=== PATIENT | female | born 1980 | race Caucasian/White ===

== ENCOUNTER 2018-04-07 17:09 | Inpatient (IN) | payer OTHER ==
[2018-04-07] MEDS ORDERED: XYLOCAINE 2% INFILTRATI ONE (18:14)
[2018-04-07] MEDS ORDERED: BRETHINE IVP PRN (18:14)
[2018-04-07] MEDS ORDERED: STADOL IV PRN (18:14)
[2018-04-07] MEDS ORDERED: MINERAL OIL PO PRN (18:14)
[2018-04-07] MEDS ORDERED: ZOFRAN IV PRN (18:14)
[2018-04-07] MEDS ORDERED: NARCAN 0.4 MG/1 ML IV PRN (18:14)
[2018-04-07] MEDS ORDERED: CERVIDIL VG ONE (18:14)
[2018-04-07] MEDS ORDERED: BRETHINE SUB-Q PRN (18:14)
--- NOTE | 2018-04-07 18:32 | History and Physical Report ---
History of Present Illness Date of examination: 04/07/18 Date of admission: 04/07/18 17:32 Chief complaint: SIUP at 36 weeks and 5 days gestation with Gestational diabetes and uncontrolled glucose. History of present illness: Patient is a 37 year old , LMP 07/24/17, EDC 04/30/18 at 36 weeks and 5 days gestation who was sent from [facility] office for uncontrolled blood glucose. She is a patient of [facility] being co-managed with [facility] for gestational diabetes. She has been on glyburide which did not provide adequate glucose control. She was prescribed insulin which she refused to take. She has been on max dose of glyburide 10 mg BID and yet, her glucose has been uncontrolled. She went to [facility] for a routine visit today where her fasting glucose was 121 and sonogram showed EFW of 8lbs 11 oz, BPP was 8/8. On arrival to triage, she denies any contractions, fluid leakage or bleeding. She reports good movement. Past History Past Medical History: diabetes, other (obesity, advanced maternal age) Past Surgical History: no surgical history Family/Genetic History: none Social history: no significant social history - Obstetrical History Expected Date of Delivery: 04/30/18 Actual Gestation: 36 Week(s) 6 Day(s) : 4 Para: 3 Number of Living Children: 3 #1 Infant Gender: Female year: 1,999 Birthweight: 3.175 kg Method of Delivery: Vaginal Gestational age at delivery: 40 #2 Gender: Female year: 2,007 Method of Delivery: Vaginal Gestational age at delivery: 40 Complications: none #3 Infant Gender: Male year: 2,008 Method of Delivery: Vaginal Gestational age at delivery: 40 Complications: none Medications and Allergies Allergies Allergy/AdvReac Type Severity Reaction Status Date / Time No Known Allergies Allergy Verified 04/07/18 18:44 - Vital Signs Vital signs: Vital Signs Pulse BP 87 116/66 04/07/18 18:01 04/07/18 18:01 Temp Pulse Resp BP Pulse Ox 87 116/66 04/07/18 18:01 04/07/18 18:01 - Physical Exam Cardiovascular: Normal S1, Normal S2 Lungs: Positive: Clear to auscultation Vulva: both: normal Deep Tendon Reflex Grade: Normal +2 - Obstetrical FHR: category 1 Uterine Contraction Monitor Mode: External Cervical Dilatation: 0 Cervical Effacement Percentage: 0 station: -3 Uterine Contraction Pattern: Absent Results Result Diagrams: 04/07/18 18:00 All other labs normal. Assessment and Plan - Patient Problems (1) 36 weeks gestation of Current Visit: Yes Status: Acute Plan to address problem: Admit to labor floor for labor induction for uncontrolled glucose. Routine admitting labs. Continuous monitoring. (2) Gestational diabetes Current Visit: Yes Status: Acute (3) Uncontrolled blood glucose Current Visit: Yes Status: Acute Plan to address problem: Will start glucose monitoring. Will give insulin sliding scale during labor. keep NPO, give IV fluid RL. (4) Advanced maternal age (AMA) in Current Visit: Yes Status: Acute (5) GBS bacteriuria Current Visit: Yes Status: Acute Plan to address problem: Will give IV antibiotics in labor.
[2018-04-07] MEDS ORDERED: PITOCin/NS 30 UNIT/500ML 30 UNITS/500 ML BAG IV SCH (19:00)
[2018-04-07] MEDS: LACTATED RINGERS 1,000 ML IV SCH (19:01)
[2018-04-07 19:03] LABS: Hemoglobin 10.8 gm/dl (10.1-14.3); Mean Corpuscular HGB Conc 34 % (30-34); Mean Corpuscular Hemoglobin 26 pg (28-32); Mean Corpuscular Volume 78 fl (79-97); Platelet Count 195 K/mm3 (140-440)
[2018-04-08] MEDS: LACTATED RINGERS 1,000 ML IV SCH ×3 (00:02→17:40)
[2018-04-08] MEDS: HumuLIN R SUB-Q SCH ×2 (00:03→22:36)
[2018-04-08] MEDS ORDERED: CYTOTEC VG SCH (09:00)
--- NOTE | 2018-04-08 09:40 | Progress Note ---
Assessment and Plan A: IUP @ 36 weeks Category I tracing Uncontrolled GDM A2 AMA GBS Unknown P: Cervidil Removed Cytotec 25mcg placed vaginally GBS prophylaxis Continue GDM MD management (sliding scale) Subjective - Subjective Date of service: 04/08/18 Patient reports: other (Resting well; has not started to feel labor pains) Objective - Vital Signs Vital Signs: Vital Signs - 12hr 04/07/18 04/07/18 04/07/18 22:15 22:17 22:22 Temperature Pulse Rate 85 81 83 Respiratory Rate Blood Pressure 115/63 Blood Pressure [Left] O2 Sat by Pulse 98 98 Oximetry 04/07/18 04/07/18 04/07/18 22:27 22:32 22:37 Temperature Pulse Rate 84 83 80 Respiratory Rate Blood Pressure Blood Pressure [Left] O2 Sat by Pulse 97 97 97 Oximetry 04/07/18 04/07/18 04/07/18 22:42 22:47 22:52 Temperature Pulse Rate 77 77 77 Respiratory Rate Blood Pressure Blood Pressure [Left] O2 Sat by Pulse 97 99 99 Oximetry 04/07/18 04/07/18 04/07/18 22:57 23:02 23:07 Temperature Pulse Rate 79 78 77 Respiratory Rate Blood Pressure Blood Pressure [Left] O2 Sat by Pulse 99 100 100 Oximetry 04/07/18 04/07/18 04/07/18 23:12 23:16 23:17 Temperature Pulse Rate 78 82 86 Respiratory Rate Blood Pressure 114/67 Blood Pressure [Left] O2 Sat by Pulse 100 96 Oximetry 04/07/18 04/07/18 04/07/18 23:22 23:27 23:32 Temperature Pulse Rate 76 83 75 Respiratory Rate Blood Pressure Blood Pressure [Left] O2 Sat by Pulse 97 97 96 Oximetry 04/07/18 04/07/18 04/07/18 23:35 23:37 23:42 Temperature Pulse Rate 90 81 75 Respiratory Rate Blood Pressure Blood Pressure [Left] O2 Sat by Pulse 94 95 95 Oximetry 04/07/18 04/07/18 04/07/18 23:47 23:52 23:57 Temperature Pulse Rate 85 84 83 Respiratory Rate Blood Pressure Blood Pressure [Left] O2 Sat by Pulse 97 97 97 Oximetry 04/08/18 04/08/18 04/08/18 00:02 00:07 00:12 Temperature Pulse Rate 83 83 88 Respiratory Rate Blood Pressure Blood Pressure [Left] O2 Sat by Pulse 97 97 97 Oximetry 04/08/18 04/08/18 04/08/18 00:16 00:17 00:22 Temperature Pulse Rate 80 87 85 Respiratory Rate Blood Pressure 105/56 Blood Pressure [Left] O2 Sat by Pulse 98 97 Oximetry 04/08/18 04/08/18 04/08/18 00:27 00:32 00:43 Temperature Pulse Rate 83 82 94 H Respiratory Rate Blood Pressure Blood Pressure [Left] O2 Sat by Pulse 96 95 83 L Oximetry 04/08/18 04/08/18 04/08/18 00:44 00:49 00:54 Temperature Pulse Rate 84 82 87 Respiratory Rate Blood Pressure Blood Pressure [Left] O2 Sat by Pulse 99 98 96 Oximetry 04/08/18 04/08/18 04/08/18 00:59 01:04 01:09 Temperature Pulse Rate 88 88 81 Respiratory Rate Blood Pressure Blood Pressure [Left] O2 Sat by Pulse 96 98 98 Oximetry 04/08/18 04/08/18 04/08/18 01:14 01:17 01:19 Temperature Pulse Rate 85 73 82 Respiratory Rate Blood Pressure 111/44 Blood Pressure [Left] O2 Sat by Pulse 98 98 Oximetry 04/08/18 04/08/18 04/08/18 01:24 01:29 01:34 Temperature Pulse Rate 79 89 79 Respiratory Rate Blood Pressure Blood Pressure [Left] O2 Sat by Pulse 98 97 97 Oximetry 04/08/18 04/08/18 04/08/18 01:39 01:44 01:49 Temperature Pulse Rate 102 H 88 94 H Respiratory Rate Blood Pressure Blood Pressure [Left] O2 Sat by Pulse 99 94 96 Oximetry 04/08/18 04/08/18 04/08/18 01:54 01:59 02:04 Temperature Pulse Rate 85 90 87 Respiratory Rate Blood Pressure Blood Pressure [Left] O2 Sat by Pulse 98 97 97 Oximetry 04/08/18 04/08/18 04/08/18 02:09 02:14 02:17 Temperature Pulse Rate 93 H 94 H 86 Respiratory Rate Blood Pressure 101/57 Blood Pressure [Left] O2 Sat by Pulse 96 96 Oximetry 04/08/18 04/08/18 04/08/18 02:19 02:24 02:29 Temperature Pulse Rate 85 87 92 H Respiratory Rate Blood Pressure Blood Pressure [Left] O2 Sat by Pulse 96 96 97 Oximetry 04/08/18 04/08/18 04/08/18 02:34 02:39 02:44 Temperature Pulse Rate 84 83 91 H Respiratory Rate Blood Pressure Blood Pressure [Left] O2 Sat by Pulse 97 97 95 Oximetry 04/08/18 04/08/18 04/08/18 02:49 02:54 02:59 Temperature Pulse Rate 81 77 82 Respiratory Rate Blood Pressure Blood Pressure [Left] O2 Sat by Pulse 96 95 96 Oximetry 04/08/18 04/08/18 04/08/18 03:18 03:23 03:28 Temperature Pulse Rate 79 80 77 Respiratory Rate Blood Pressure 114/58 Blood Pressure [Left] O2 Sat by Pulse 97 96 97 Oximetry 04/08/18 04/08/18 04/08/18 03:33 03:38 03:43 Temperature Pulse Rate 78 79 85 Respiratory Rate Blood Pressure Blood Pressure [Left] O2 Sat by Pulse 97 97 96 Oximetry 04/08/18 04/08/18 04/08/18 03:48 03:53 03:58 Temperature Pulse Rate 80 83 79 Respiratory Rate Blood Pressure Blood Pressure [Left] O2 Sat by Pulse 97 97 96 Oximetry 04/08/18 04/08/18 04/08/18 04:03 04:08 04:13 Temperature Pulse Rate 86 92 H 80 Respiratory Rate Blood Pressure Blood Pressure [Left] O2 Sat by Pulse 96 98 98 Oximetry 04/08/18 04/08/18 04/08/18 04:16 04:18 04:23 Temperature Pulse Rate 76 80 77 Respiratory Rate Blood Pressure 122/64 Blood Pressure [Left] O2 Sat by Pulse 98 98 Oximetry 04/08/18 04/08/18 04/08/18 04:28 04:33 04:38 Temperature Pulse Rate 86 80 81 Respiratory Rate Blood Pressure Blood Pressure [Left] O2 Sat by Pulse 98 99 98 Oximetry 04/08/18 04/08/18 04/08/18 04:43 04:48 04:53 Temperature Pulse Rate 88 84 80 Respiratory Rate Blood Pressure Blood Pressure [Left] O2 Sat by Pulse 99 99 99 Oximetry 04/08/18 04/08/18 04/08/18 04:58 05:03 05:08 Temperature Pulse Rate 76 82 79 Respiratory Rate Blood Pressure Blood Pressure [Left] O2 Sat by Pulse 99 100 100 Oximetry 04/08/18 04/08/18 04/08/18 05:13 05:18 05:23 Temperature Pulse Rate 78 80 82 Respiratory Rate Blood Pressure Blood Pressure [Left] O2 Sat by Pulse 100 100 99 Oximetry 04/08/18 04/08/18 04/08/18 05:28 05:33 05:38 Temperature Pulse Rate 75 86 81 Respiratory Rate Blood Pressure Blood Pressure [Left] O2 Sat by Pulse 100 100 99 Oximetry 04/08/18 04/08/18 04/08/18 05:43 05:48 05:53 Temperature Pulse Rate 75 72 73 Respiratory Rate Blood Pressure Blood Pressure [Left] O2 Sat by Pulse 98 97 96 Oximetry 04/08/18 04/08/18 04/08/18 05:58 06:03 08:52 Temperature 98.2 F Pulse Rate 77 82 85 Respiratory 18 Rate Blood Pressure Blood Pressure 104/56 [Left] O2 Sat by Pulse 96 97 97 Oximetry 04/08/18 08:53 Temperature Pulse Rate 76 Respiratory Rate Blood Pressure 104/56 Blood Pressure [Left] O2 Sat by Pulse 98 Oximetry - Exam Breasts: normal Cardiovascular: Regular rate Lungs: Clear to auscultation, Normal air movement Abdomen: Present: normal appearance, soft Uterus: Present: normal, firm, fundal height above umbilicus FHR: category 1 Uterine Contraction Monitor Mode: External Cervical Dilatation: 1 Cervical Effacement Percentage: 20 station: -3 Uterine Contraction Pattern: Irregular Uterine Tone Measurement Phase: Resting Uterine Contraction Intensity: Mild - Labs Labs: Abnormal Labs 04/07/18 04/08/18 04/08/18 18:00 00:00 01:42 MCV 78 L MCH 26 L RDW 16.0 H POC Glucose 51 L 108 H Laboratory Results - last 24 hr 04/07/18 04/07/18 04/08/18 18:00 18:00 00:00 WBC 4.5 RBC 4.10 Hgb 10.8 Hct 32.0 MCV 78 L MCH 26 L MCHC 34 RDW 16.0 H Plt Count 195 POC Glucose 51 L Blood Type O POSITIVE Antibody Screen Negative 04/08/18 01:42 WBC RBC Hgb Hct MCV MCH MCHC RDW Plt Count POC Glucose 108 H Blood Type Antibody Screen
[2018-04-08] MEDS: PFIZERPEN 2.5 MIL.UNITS in NACL 0.9% 50 ML IV SCH ×5 (12:19→22:25)
--- NOTE | 2018-04-08 14:22 | Progress Note ---
Assessment and Plan A: IUP @ 36 weeks Category I tracing Uncontrolled GDM A2 AMA GBS Unknown P: Cook's Cervical Ripening Balloon placed Start Low Dose Pitocin Augmentation Continue GBS Prophylaxis IV Pain Control Continue GDM MD management (sliding scale) Subjective - Subjective Date of service: 04/08/18 Patient reports: movement normal, contractions Objective - Vital Signs Vital Signs: Vital Signs - 12hr 04/08/18 04/08/18 04/08/18 02:19 02:24 02:29 Temperature Pulse Rate 85 87 92 H Respiratory Rate Blood Pressure Blood Pressure [Left] O2 Sat by Pulse 96 96 97 Oximetry 04/08/18 04/08/18 04/08/18 02:34 02:39 02:44 Temperature Pulse Rate 84 83 91 H Respiratory Rate Blood Pressure Blood Pressure [Left] O2 Sat by Pulse 97 97 95 Oximetry 04/08/18 04/08/18 04/08/18 02:49 02:54 02:59 Temperature Pulse Rate 81 77 82 Respiratory Rate Blood Pressure Blood Pressure [Left] O2 Sat by Pulse 96 95 96 Oximetry 04/08/18 04/08/18 04/08/18 03:18 03:23 03:28 Temperature Pulse Rate 79 80 77 Respiratory Rate Blood Pressure 114/58 Blood Pressure [Left] O2 Sat by Pulse 97 96 97 Oximetry 04/08/18 04/08/18 04/08/18 03:33 03:38 03:43 Temperature Pulse Rate 78 79 85 Respiratory Rate Blood Pressure Blood Pressure [Left] O2 Sat by Pulse 97 97 96 Oximetry 04/08/18 04/08/18 04/08/18 03:48 03:53 03:58 Temperature Pulse Rate 80 83 79 Respiratory Rate Blood Pressure Blood Pressure [Left] O2 Sat by Pulse 97 97 96 Oximetry 04/08/18 04/08/18 04/08/18 04:03 04:08 04:13 Temperature Pulse Rate 86 92 H 80 Respiratory Rate Blood Pressure Blood Pressure [Left] O2 Sat by Pulse 96 98 98 Oximetry 04/08/18 04/08/18 04/08/18 04:16 04:18 04:23 Temperature Pulse Rate 76 80 77 Respiratory Rate Blood Pressure 122/64 Blood Pressure [Left] O2 Sat by Pulse 98 98 Oximetry 04/08/18 04/08/18 04/08/18 04:28 04:33 04:38 Temperature Pulse Rate 86 80 81 Respiratory Rate Blood Pressure Blood Pressure [Left] O2 Sat by Pulse 98 99 98 Oximetry 04/08/18 04/08/18 04/08/18 04:43 04:48 04:53 Temperature Pulse Rate 88 84 80 Respiratory Rate Blood Pressure Blood Pressure [Left] O2 Sat by Pulse 99 99 99 Oximetry 04/08/18 04/08/18 04/08/18 04:58 05:03 05:08 Temperature Pulse Rate 76 82 79 Respiratory Rate Blood Pressure Blood Pressure [Left] O2 Sat by Pulse 99 100 100 Oximetry 04/08/18 04/08/18 04/08/18 05:13 05:18 05:23 Temperature Pulse Rate 78 80 82 Respiratory Rate Blood Pressure Blood Pressure [Left] O2 Sat by Pulse 100 100 99 Oximetry 04/08/18 04/08/18 04/08/18 05:28 05:33 05:38 Temperature Pulse Rate 75 86 81 Respiratory Rate Blood Pressure Blood Pressure [Left] O2 Sat by Pulse 100 100 99 Oximetry 04/08/18 04/08/18 04/08/18 05:43 05:48 05:53 Temperature Pulse Rate 75 72 73 Respiratory Rate Blood Pressure Blood Pressure [Left] O2 Sat by Pulse 98 97 96 Oximetry 04/08/18 04/08/18 04/08/18 05:58 06:03 08:52 Temperature 98.2 F Pulse Rate 77 82 85 Respiratory 18 Rate Blood Pressure Blood Pressure 104/56 [Left] O2 Sat by Pulse 96 97 97 Oximetry 04/08/18 04/08/18 04/08/18 08:53 12:29 12:30 Temperature 99.3 F Pulse Rate 76 88 80 Respiratory 18 Rate Blood Pressure 104/56 116/72 Blood Pressure 116/72 [Left] O2 Sat by Pulse 98 97 97 Oximetry - Exam Breasts: normal Cardiovascular: Regular rate Lungs: Clear to auscultation, Normal air movement Abdomen: Present: normal appearance, soft Uterus: Present: normal, firm FHR: category 1 Uterine Contraction Monitor Mode: External Cervical Dilatation: 1 (intact) Cervical Effacement Percentage: 30 station: -3 Uterine Contraction Pattern: Irregular Uterine Tone Measurement Phase: Resting Uterine Contraction Intensity: Moderate Extremities: normal - Labs Labs: Abnormal Labs 04/07/18 04/08/18 04/08/18 18:00 00:00 01:42 MCV 78 L MCH 26 L RDW 16.0 H POC Glucose 51 L 108 H Laboratory Results - last 24 hr 04/07/18 04/07/18 04/08/18 18:00 18:00 00:00 WBC 4.5 RBC 4.10 Hgb 10.8 Hct 32.0 MCV 78 L MCH 26 L MCHC 34 RDW 16.0 H Plt Count 195 POC Glucose 51 L RPR Blood Type O POSITIVE Antibody Screen Negative 04/08/18 04/08/18 04/08/18 01:42 09:30 11:31 WBC RBC Hgb Hct MCV MCH MCHC RDW Plt Count POC Glucose 108 H 91 RPR Nonreactive Blood Type Antibody Screen
[2018-04-08] MEDS: STADOL IV PRN ×2 (14:35→20:50)
[2018-04-08] MEDS: PITOCin/NS 30 UNIT/500ML 30 UNITS/500 ML BAG IV SCH ×2 (14:53→15:53)
--- NOTE | 2018-04-08 18:53 | Progress Note ---
Assessment and Plan A: IUP @ 36 weeks Category I tracing Uncontrolled GDM A2 AMA GBS Unknown P: Cook's Cervical Ripening Balloon fell out Continue Pitocin Augmentation Continue GBS Prophylaxis IV Pain Control Continue GDM MD management (sliding scale) Subjective - Subjective Date of service: 04/08/18 Patient reports: movement normal, contractions Objective - Vital Signs Vital Signs: Vital Signs - 12hr 04/08/18 04/08/18 04/08/18 08:52 08:53 12:29 Temperature 98.2 F 99.3 F Pulse Rate 85 76 88 Respiratory 18 18 Rate Blood Pressure 104/56 116/72 Blood Pressure 104/56 116/72 [Left] O2 Sat by Pulse 97 98 97 Oximetry 04/08/18 04/08/18 04/08/18 12:30 14:54 15:28 Temperature Pulse Rate 80 77 78 Respiratory Rate Blood Pressure 113/66 112/60 Blood Pressure [Left] O2 Sat by Pulse 97 Oximetry 04/08/18 04/08/18 04/08/18 15:55 15:56 16:27 Temperature 98.1 F Pulse Rate 78 78 71 Respiratory 18 Rate Blood Pressure 103/60 111/60 Blood Pressure 103/60 [Left] O2 Sat by Pulse Oximetry 04/08/18 04/08/18 04/08/18 16:57 17:26 17:56 Temperature Pulse Rate 70 71 71 Respiratory Rate Blood Pressure 123/61 127/73 120/68 Blood Pressure [Left] O2 Sat by Pulse Oximetry 04/08/18 18:27 Temperature Pulse Rate 77 Respiratory Rate Blood Pressure 131/82 Blood Pressure [Left] O2 Sat by Pulse Oximetry - Exam Breasts: normal Abdomen: Present: normal appearance, soft Uterus: Present: normal, firm, fundal height above umbilicus FHR: category 1 Uterine Contraction Monitor Mode: External Cervical Dilatation: 5 (Vtx) Cervical Effacement Percentage: 60 station: -3 Uterine Contraction Pattern: Regular Uterine Tone Measurement Phase: Resting Uterine Contraction Intensity: Moderate - Labs Labs: Abnormal Labs 04/07/18 04/08/18 04/08/18 18:00 00:00 01:42 MCV 78 L MCH 26 L RDW 16.0 H POC Glucose 51 L 108 H Laboratory Results - last 24 hr 04/07/18 04/07/18 04/08/18 18:00 18:00 00:00 WBC 4.5 RBC 4.10 Hgb 10.8 Hct 32.0 MCV 78 L MCH 26 L MCHC 34 RDW 16.0 H Plt Count 195 POC Glucose 51 L RPR Blood Type O POSITIVE Antibody Screen Negative 04/08/18 04/08/18 04/08/18 01:42 09:30 11:31 WBC RBC Hgb Hct MCV MCH MCHC RDW Plt Count POC Glucose 108 H 91 RPR Nonreactive Blood Type Antibody Screen 04/08/18 14:40 WBC RBC Hgb Hct MCV MCH MCHC RDW Plt Count POC Glucose 93 RPR Blood Type Antibody Screen
[2018-04-08] MEDS ORDERED: PITOCin/NS 20 UNIT/1000ML DRIP 20 UNITS/1,000 ML BAG IV SCH (20:00)
--- NOTE | 2018-04-08 20:31 | Event Note ---
Date: 04/08/18 O:Denis bulb fell out, last exam was /-3/ intact, Cat I tracing A; Uncontrolled Diabetes Induction of labor @ 36.5 wks P; Pitocin discontinued Will restart in am
[2018-04-09] MEDS: PFIZERPEN 2.5 MIL.UNITS in NACL 0.9% 50 ML IV SCH ×3 (02:53→10:54)
[2018-04-09] MEDS: LACTATED RINGERS 1,000 ML IV SCH (03:34)
[2018-04-09] MEDS: PITOCin/NS 30 UNIT/500ML 30 UNITS/500 ML BAG IV SCH (06:09)
[2018-04-09] MEDS: HumuLIN R SUB-Q SCH ×3 (06:29→11:59)
[2018-04-09] MEDS: STADOL IV PRN (07:07)
[2018-04-09] MEDS ORDERED: D50W (25GM) Syringe IV PRN (08:30)
--- NOTE | 2018-04-09 08:33 | Progress Note ---
Assessment and Plan - Patient Problems (1) 37 weeks gestation of Current Visit: Yes Status: Acute (2) Encounter for induction of labor Current Visit: Yes Status: Acute Plan to address problem: Continue routine labor orders AROM @ 08:21, clear fluid, moderate amount IUPC/FSE inserted Anticipate vaginal delivery (3) Gestational diabetes Current Visit: Yes Status: Acute Qualifiers: Gestational diabetes mellitus control: insulin-controlled Trimester: third trimester Qualified Code(s): O24.414 - Gestational diabetes mellitus in , insulin controlled Plan to address problem: Blood glucose 51-111 Continue accuchecks and sliding scale insulin, per MD management (4) GBS bacteriuria Current Visit: Yes Status: Acute Plan to address problem: Continue antibiotics therapy (5) Advanced maternal age (AMA) in Current Visit: Yes Status: Acute Subjective - Subjective Date of service: 04/09/18 Principal diagnosis: IUP @ 37 weeks 0 day; IOL secondary to Uncontrolled GDM Patient reports: movement normal, contractions, no loss of fluid, no vaginal bleeding Objective - Vital Signs Vital Signs: Vital Signs - 12hr 04/08/18 04/08/18 04/08/18 20:44 20:50 21:20 Temperature Pulse Rate 81 Respiratory 18 18 Rate Blood Pressure 116/65 Blood Pressure [Left] O2 Sat by Pulse Oximetry 04/08/18 04/08/18 04/08/18 21:43 22:45 23:45 Temperature Pulse Rate 97 H 80 82 Respiratory Rate Blood Pressure 127/75 118/61 125/65 Blood Pressure [Left] O2 Sat by Pulse Oximetry 04/08/18 04/08/18 04/09/18 23:53 23:55 00:44 Temperature 99.7 F H Pulse Rate 85 85 98 H Respiratory 20 Rate Blood Pressure 124/63 119/55 Blood Pressure 124/63 [Left] O2 Sat by Pulse Oximetry 04/09/18 04/09/18 04/09/18 01:44 02:43 03:32 Temperature 99.6 F Pulse Rate 98 H 88 98 H Respiratory 18 Rate Blood Pressure 117/62 109/61 Blood Pressure 111/66 [Left] O2 Sat by Pulse Oximetry 04/09/18 04/09/18 04/09/18 03:34 03:43 04:45 Temperature Pulse Rate 98 H 88 81 Respiratory Rate Blood Pressure 111/66 116/63 115/76 Blood Pressure [Left] O2 Sat by Pulse Oximetry 04/09/18 04/09/18 04/09/18 05:43 06:43 07:00 Temperature 98.8 F Pulse Rate 95 H 90 Respiratory Rate Blood Pressure 117/60 110/61 Blood Pressure [Left] O2 Sat by Pulse Oximetry 04/09/18 04/09/18 04/09/18 07:10 07:45 08:32 Temperature Pulse Rate 100 H 90 81 Respiratory Rate Blood Pressure 111/66 108/60 Blood Pressure [Left] O2 Sat by Pulse 99 Oximetry - Exam Vulva: both: normal FHR: category 2 FHR comments: baseline 130, moderate variability, 15x15 accels, variable decels Uterine Contraction Monitor Mode: External Cervical Dilatation: 7 Cervical Effacement Percentage: 80 station: -1 Uterine Contraction Frequency (min): 5-7 Uterine Contraction Pattern: Regular Extremities: normal - Labs Labs: Abnormal Labs 04/07/18 04/08/18 04/08/18 18:00 00:00 01:42 MCV 78 L MCH 26 L RDW 16.0 H POC Glucose 51 L 108 H 04/09/18 06:19 MCV MCH RDW POC Glucose 111 H Laboratory Results - last 24 hr 04/08/18 04/08/18 04/08/18 09:30 11:31 14:40 POC Glucose 91 93 RPR Nonreactive 04/08/18 04/08/18 04/09/18 19:03 22:36 02:17 POC Glucose 71 76 87 RPR 04/09/18 06:19 POC Glucose 111 H RPR
[2018-04-09] MEDS ORDERED: NARCAN 2 MG/2 ML IV PRN (09:33)
[2018-04-09] MEDS ORDERED: fentaNYL-BUPIV 2 MCG/ML-0.125% 200 MCG/100 ML BAG EPIDURAL SCH (10:00)
[2018-04-09] MEDS ORDERED: NACL 0.9% 1000 ML 1,000 ML ONE ×3 (11:47→15:21)
--- NOTE | 2018-04-09 12:56 | Event Note ---
Date: 04/09/18 Patient with deep decels. On exam, she is 7-8/0 station. Plan is to proceed with primary LTCS and BTL. She has been consented.
[2018-04-09] MEDS ORDERED: BICITRA ONE (13:01)
[2018-04-09] MEDS ORDERED: BICITRA PO SCH (13:01)
[2018-04-09] MEDS ORDERED: REGLAN IV ONE (13:01)
[2018-04-09] MEDS ORDERED: PEPCID IV ONE ×2 (13:01→13:02)
[2018-04-09] MEDS ORDERED: REGLAN ONE (13:01)
[2018-04-09] MEDS ORDERED: ANCEF/STERILE WATER 2 GM/20 ML 2 GM/20 ML SYRINGE IV ONE (13:02)
[2018-04-09] MEDS ORDERED: XYLOCAINE MPF 2% ONE (13:39)
[2018-04-09] MEDS ORDERED: NEO SYNEPHRINE/NS Syringe(OR USE) IV ONE ×3 (13:39→15:00)
[2018-04-09 13:44] LABS: Basophils % (Auto) 0.3 % (0.0-1.8); Eosinophils % (Auto) 0.2 % (0.0-4.3); Hematocrit 33.3 % (30.3-42.9); Hemoglobin 11.1 gm/dl (10.1-14.3); Lymphocytes # (Auto) 1.5 K/mm3 (1.2-5.4); Lymphocytes % (Auto) 14.1 % (13.4-35.0); Mean Corpuscular HGB Conc 33 % (30-34); Mean Corpuscular Hemoglobin 26 pg (28-32); Mean Corpuscular Volume 79 fl (79-97); Monocytes # (Auto) 0.5 K/mm3 (0.0-0.8); Monocytes % (Auto) 4.8 % (0.0-7.3); Platelet Count 195 K/mm3 (140-440); Red Blood Count 4.21 M/mm3 (3.65-5.03); Red Cell Distribution Width 16.4 % (13.2-15.2)
[2018-04-09] MEDS ORDERED: WATER FOR IRRIG STERILE IR ONE (13:51)
[2018-04-09] MEDS ORDERED: NACL 0.9% IR ONE (13:51)
[2018-04-09] MEDS ORDERED: PITOCin/NS 20 UNIT/1000ML DRIP 20 UNITS/1,000 ML BAG IV SCH ×2 (14:00→16:00)
[2018-04-09] MEDS ORDERED: ANCEF/STERILE WATER 2 GM/20 ML 2 GM/20 ML SYRINGE IV NR (14:00)
[2018-04-09] MEDS ORDERED: LACTATED RINGERS 1,000 ML IV SCH (14:00)
[2018-04-09] MEDS ORDERED: ASTRAMORPH PF 10MG/10ML ONE (14:32)
[2018-04-09] MEDS ORDERED: NACL 0.9% 500 ML 500 ML IV SCH (14:47)
--- NOTE | 2018-04-09 15:30 | Operative Report ---
Operative Report Operative Report: DATE: 04/09/2018 PREOPERATIVE DIAGNOSIS: 37-year-old at 37 weeks, category 2 tracing, Arrest of descent and arrest of dilation, Desires permanent sterilization POSTOP DIAGNOSIS: As above plus severely impacted fetus NAME OF PROCEDURE: Primary low transverse section, Bilateral tubal ligation by Cassandra SURGEON: GAUTAM BECKHAM MD [employer]: Elaina ANESTHESIA: Epidural COMPLICATION: Left cervical laceration EBL: 1600 mL PATHOLOGY SPECIMEN: Tubal specimens URINE OUTPUT: 100 mL bloody FINDINGS:Male in cephalic presentation, severely impacted fetus, time of 13:58, weight 7 lbs. 9 oz. or 3426 g, Apgars 8 and 8, normal uterus tubes and ovaries bilaterally DESCRIPTION OF PROCEDURE: After informed consent, patient was taken to the operating room where she was prepped and draped in a sterile fashion. Pfannestial incision was performed 2 cm above the pubic symphysis. This was then carried down to the underlying rectus fascia which was scored in the midline. The fascial incision was extended laterally with the use of Nichole scissors, anterior leaf was then grasped with Radha's elevated dissected sharply and bluntly off the underlying rectus. In a similar fashion the inferior leaf was grasped elevated dissected sharply and bluntly off the underlying rectus. The rectus was in the midline and the peritoneal cavity was entered without difficulty. After good visualization of the bladder the peritoneal layer was extended up and down; bladder blade was placed in the patient's pelvic cavity, bladder flap was created without difficulty. A hysterotomy incision was then performed with clear amniotic fluid noted. in cephalic presentation and deeply impacted was delivered with some difficulty after dislodging the impaction; cord was clamped cut and was handed over to waiting NICU staff. The placenta was then delivered intact, the uterus was then exteriorized cleared of all clots and debris. Her hysterotomy incision was was inspected and then the cervical laceration was repaired in a running fashion with 3-0 [address]1. The rest of the hysterotomy was then closed in a running locked fashion with 0 Vicryl on a CTX; using the same suture were able to imbricate the initial layer. Our attention was then turned to the tubes which were each grasped serially with Rand's elevated and using Cassandra technique, a sample of each tube was removed and sent to pathology. The uterus was then returned to the patient's pelvic cavity; the peritoneal edges were grasped with hemostats and Alem's; irrigation was used to clear the gutters of all clots and debris. Tisseel hemostatic agent and Surgicel were applied copiously over the hysterotomy incision. The bladder flap was then closed in a running fashion with 3-0 Vicryl. The peritoneal layer was closed in a running fashion with 3-0 Vicryl; the rectus was reapproximated with a single [id number] stitch. The fascia was then closed in a running fashion with 0 Vicryl; the subcutaneous layer was reapproximated with a single [id number] stitch. The skin was then closed in a subcuticular manner with 4-0 Monocryl. She tolerated the procedure well lap and instrument counts were correct 2, she did receive 2 grams of Ancef prior to the procedure. She is transferred to PACU in stable condition. She will receive 1 unit of packed red blood cell in PACU.
[2018-04-09] MEDS ORDERED: LANSINOH TP PRN (15:55)
[2018-04-09] MEDS ORDERED: NARCAN 0.4 MG/1 ML IV PRN (15:55)
[2018-04-09] MEDS ORDERED: PHENERGAN PR PRN (15:55)
[2018-04-09] MEDS ORDERED: ANUCORT-HC PR PRN (15:55)
[2018-04-09] MEDS ORDERED: TUCKS PAD TP PRN (15:55)
[2018-04-09] MEDS ORDERED: TYLENOL PO PRN (15:55)
[2018-04-09] MEDS ORDERED: D5LR 1,000 ML IV SCH (16:00)
[2018-04-09] MEDS ORDERED: SODIUM CHLORIDE FLUSH SYRINGE 10 ML IV NR (16:00)
[2018-04-10] MEDS: TORADOL IV PRN ×2 (00:49→08:38)
[2018-04-10 03:22] LABS: Hematocrit 28.2 % (30.3-42.9); Hemoglobin 9.3 gm/dl (10.1-14.3)
[2018-04-10 07:02] LABS: Blood Urea Nitrogen 4 mg/dL (7-17)
[2018-04-10] MEDS: MYLICON PO PRN (08:38)
--- NOTE | 2018-04-10 09:29 | Progress Note ---
Assessment and Plan A: /postop day 1 S/P primary low transverse section with BTL. Anemia. P: Encouraged patient to ambulate. Will advance diet as tolerated after patient is passing gas. Iron supplementation. Subjective - Subjective Date of service: 04/10/18 Principal diagnosis: /postop day 1 S/P primary LTCS w BTL Interval history: /postop day 1 S/P primary low transverse section with BTL. Patient is doing well. She has been up to ambulate in her room today; has not yet ambulated in the hallway. She is voiding without difficulty. Not passing gas yet. Tolerating a liquid diet without nausea or vomiting. Reports a small amount of lochia. Bottlefeeding. Patient denies headache, chest pain, cough, shortness of breath, abdominal pain, leg pain, or heavy bleeding. Patient reports: voiding normally, pain well controlled, ambulating normally, no flatus, no bowel movement : doing well Objective - Vital Signs Latest vital signs: Vital Signs Temp Pulse Resp BP BP Pulse Ox 04/10/18 04:32 99.1 F 99 H 20 105/66 96 04/10/18 00:49 20 04/10/18 00:25 99.8 F H 98 H 16 116/53 99 04/09/18 21:15 99.1 F 93 H 18 118/74 97 04/09/18 16:20 98.5 F 89 20 132/76 94 04/09/18 16:05 84 16 129/72 94 04/09/18 15:55 98.5 F 98 H 17 130/70 98 04/09/18 15:50 92 H 18 133/80 96 04/09/18 15:35 98.6 F 91 H 16 124/65 98 04/09/18 15:30 98 H 17 116/65 98 04/09/18 15:25 98.8 F 98 H 17 115/66 99 04/09/18 15:20 98.8 F 101 H 13 116/57 99 04/09/18 12:47 75 104/56 04/09/18 12:31 78 131/71 04/09/18 12:18 77 130/75 04/09/18 12:01 89 122/72 04/09/18 12:00 99.2 F 04/09/18 11:47 72 139/85 10/19/18 11:39 74 100 18 11:34 74 100 18 11:32 76 131/72 18 11:29 76 100 18 11:24 82 100 18 11:19 76 100 18 11:16 73 122/68 04/09/18 11:14 86 100 18 11:09 75 100 18 11:04 80 100 18 11:01 75 122/68 18 10:59 81 100 18 10:54 74 99 18 10:49 83 100 18 10:46 83 136/73 04/09/18 10:44 79 100 18 10:39 93 H 100 18 10:34 88 100 18 10:33 89 130/94 18 10:29 81 99 04/09/18 10:24 84 100 04/09/18 10:19 80 99 04/09/18 10:17 80 129/68 18 10:14 88 99 04/09/18 10:09 84 99 04/09/18 10:04 82 99 04/09/18 10:01 83 105/57 04/09/18 10:00 99.2 F 04/09/18 09:59 83 100 18 09:54 95 H 100 04/09/18 09:49 84 100 04/09/18 09:48 87 91 04/09/18 09:45 85 115/65 04/09/18 09:44 81 99 18 09:42 82 111/59 18 09:39 78 108/55 18 09:38 83 99 04/09/18 09:36 82 115/57 18 09:34 82 99 04/09/18 09:33 82 110/58 18 09:30 75 107/56 18 09:29 85 98 18 09:27 81 110/59 Intake and Output 04/09/18 04/10/18 04/10/18 23:59 07:59 15:59 Intake Total 1520 360 Output Total 900 450 Balance 620 -90 Intake: IV 1400 Intake, Free Water 120 360 Output: Urine 900 450 Indwelling Catheter 800 450 Other: Total, Output Amount 800 450 Estimated Blood Loss 1,600 - Exam Cardiovascular: Present: Regular rate, Normal S1, Normal S2 Lungs: Present: Clear to auscultation Abdomen: Present: normal appearance, soft, normal bowel sounds. Absent: distention, tenderness, guarding, rigidity Uterus: Present: normal, firm, fundal height below umbilicus. Absent: bogginess , tenderness Extremities: Present: normal. Absent: tenderness, edema Incision: Present: erythematous, dry, intact, dressed - Labs Labs: Abnormal lab results 04/09/18 04/09/18 04/09/18 Range/Units 13:11 13:11 17:37 Hgb (10.1-14.3) gm/dl Hct (30.3-42.9) % MCH 26 L (28-32) pg RDW 16.4 H (13.2-15.2) % Seg Neutrophils % 80.6 H (40.0-70.0) % Seg Neutrophils # 8.7 H (1.8-7.7) K/mm3 BUN (7-17) mg/dL Creatinine (0.7-1.2) mg/dL POC Glucose 119 H (70-105) Crossmatch See Detail 04/10/18 04/10/18 Range/Units 03:01 03:01 Hgb 9.3 L (10.1-14.3) gm/dl Hct 28.2 L (30.3-42.9) % MCH (28-32) pg RDW (13.2-15.2) % Seg Neutrophils % (40.0-70.0) % Seg Neutrophils # (1.8-7.7) K/mm3 BUN 4 L (7-17) mg/dL Creatinine 0.5 L (0.7-1.2) mg/dL POC Glucose (70-105) Crossmatch
[2018-04-10] MEDS ORDERED: AFLURIA QUAD 2018-2019 SYRINGE IM ONE (12:00)
[2018-04-10] MEDS: PRENATAL VITAMIN PO SCH (14:10)
[2018-04-10] MEDS: PERCOCET 5/325 PO PRN (14:10)
[2018-04-10] MEDS: MOTRIN PO PRN (14:10)
[2018-04-10] MEDS ORDERED: M-M-R II VACCINE SUB-Q ONE (15:55)
[2018-04-10] MEDS ORDERED: BOOSTRIX IM ONE (15:55)
[2018-04-10] MEDS: FEOSOL PO SCH (17:30)
[2018-04-11] MEDS: PERCOCET 5/325 PO PRN ×2 (00:33→06:41)
[2018-04-11] MEDS: MOTRIN PO PRN ×3 (00:34→21:24)
--- NOTE | 2018-04-11 13:50 | Progress Note ---
Assessment and Plan O: Walking in hallway, VS stable Blood sugars 111- 119 A: POD # 2 - stable Diabetes P: Plan discharge home in am. Subjective - Subjective Date of service: 04/11/18 Principal diagnosis: /postop day 2 S/P primary LTCS w BTL Patient reports: appetite normal [place]: doing well Objective - Vital Signs Latest vital signs: Vital Signs Temp Pulse Resp BP BP Pulse Ox 04/11/18 07:56 98.5 F 93 H 16 107/71 94 04/10/18 23:30 98.7 F 69 18 117/64 04/10/18 16:11 97.3 F L 96 H 24 113/69 96 Intake and Output 04/10/18 04/11/18 04/11/18 22:59 06:59 14:59 Intake Total 800 300 360 Balance 800 300 360 Intake: Oral 800 360 Intake, Free Water 300 Other: Total, Intake Amount 800 240 Voiding Method Toilet # Voids 1 Void 1 1 - Exam Breasts: Present: deferred Cardiovascular: Present: Regular rate Lungs: Present: Clear to auscultation Abdomen: Present: soft Vulva: both: normal Uterus: Present: fundal height below umbilicus Extremities: Present: normal Deep Tendon Reflex Grade: Normal +2 Incision: Present: normal
--- NOTE | 2018-04-11 13:52 | Discharge Summary ---
Providers - Providers Date of Admission: 04/07/18 17:32 Date of discharge: 04/12/18 Attending physician: LESA MARR MD Primary care physician: LESA MARR MD Hospitalization Reason for admission: active labor Delivery: Procedure: section, bilateral tubal ligation Episiotomy: none Laceration: none Incision: intact complications: none Discharge diagnosis: IUP at term delivered [place] baby: male Condition at discharge: Good Disposition: DC-01 TO HOME OR SELFCARE Plan - Discharge Medications Prescriptions: Ibuprofen [Motrin 600 MG tab] 600 mg PO Q8H PRN #30 tablet PRN Reason: Pain Multivitamin with Iron [Multivitamins with Iron] 1 each PO DAILY #30 tablet oxyCODONE /ACETAMINOPHEN [Percocet 5/325] 1 tab PO Q6HR PRN #30 tablet PRN Reason: Pain - Provider Discharge Summary Activity: routine, no sex for 6 weeks, no strenuous exercise Diet: routine Instructions: routine Additional instructions: [] Smoking cessation referral if applicable(refer to patient education folder for contact #) [] Refer to [facility] Booklet Call your doctor immediately for: * Fever > 100.5 * Heavy vaginal bleeding ( >1 pad per hour) * Severe persistent headache * Shortness of breath * Reddened, hot, painful area to leg or breast * Drainage or odor from incision. * Keep incision clean and dry at all times and follow doctor's instructions regarding bathing/showering - Follow up plan Follow up: LESA MARR MD [Primary Care Provider] - 14 Days
[2018-04-11] MEDS: MILK OF MAGNESIA PO PRN (21:07)
[2018-04-12] MEDS: MOTRIN PO PRN ×2 (05:04→13:17)
[2018-04-12 08:57] VITALS: BP 113/67
[2018-04-12] MEDS: PRENATAL VITAMIN PO SCH (10:20)
[2018-04-12] MEDS: MYLICON PO PRN (10:21)
[2018-04-12] MEDS: FEOSOL PO SCH (10:21)
[2018-04-12] MEDS: MILK OF MAGNESIA PO PRN (10:21)
[2018-04-12] MEDS: PERCOCET 5/325 PO PRN (13:15)
== END 2018-04-12 16:30 | disposition home or self-care (01) | DRG 785 ==
LOC: TRG 17:09 → LD 17:32 → TRG 17:32 → OB 04-09 17:04
PROVIDERS: ADMIT Obstetrics & Gynecology; ATTEND Obstetrics & Gynecology
PROC: 10D00Z1 Extraction of Products of Conception, Low, Open Approach (ICD-10-PCS; principal; 2018-04-09)
PROC: 0UT70ZZ Resection of Bilateral Fallopian Tubes, Open Approach (ICD-10-PCS; 2018-04-09)
PROC: 30233N1 Transfusion of Nonautologous Red Blood Cells into Peripheral Vein, Percutaneous Approach (ICD-10-PCS; 2018-04-09)
PROC: 10H07YZ Insertion of Other Device into Products of Conception, Via Natural or Artificial Opening (ICD-10-PCS; 2018-04-09)
PROC: 3E0234Z Introduction of Serum, Toxoid and Vaccine into Muscle, Percutaneous Approach (ICD-10-PCS; 2018-04-10)
DX: O24.429 Gestational diabetes mellitus in childbirth, unspecified control (principal); O99.824 Streptococcus B carrier state complicating childbirth; O99.214 Obesity complicating childbirth; E66.9 Obesity, unspecified; O62.1 Secondary uterine inertia; O99.02 Anemia complicating childbirth; D64.9 Anemia, unspecified; Z30.2 Encounter for sterilization; Z37.0 Single live birth; Z68.29 Body mass index [BMI] 29.0-29.9, adult; Z68.36 Body mass index [BMI] 36.0-36.9, adult; Z23 Encounter for immunization
CPT/HCPCS: 36415; 59200; 82565; 82962; 84520; 85014; 85018; 85025; 85027; 86592; 86850; 86900; 86901; 86920; 88302; 99211; A6250; C9250; G0463; J0595; J0690; J1815; J1885; J2274; J2370; J2540; J2590; J2765; J7030; J7120; J7121; P9016